=== PATIENT | female | born 1990 | race Caucasian/White ===

== ENCOUNTER 2022-03-21 11:54 | Day surgery (SDC) | payer BC ==
[2022-03-21] MEDS ORDERED: IMMUNE GLOBULIN IVPB SCH (13:00)
[2022-03-21] MEDS ORDERED: ADMIXTURE FEE IVPB SCH (13:00)
[2022-03-21 13:44] VITALS: TEMP 98
[2022-03-21 15:21] VITALS: BP 101/60
== END 2022-03-21 15:41 | disposition home or self-care (01) ==
LOC: ONC/OP 11:54
PROVIDERS: ATTEND Psychiatry & Neurology Neurology
DX: G65.1 Sequelae of other inflammatory polyneuropathy (principal); G61.81 Chronic inflammatory demyelinating polyneuritis; Z79.52 Long term (current) use of systemic steroids
CPT/HCPCS: 96365; 96366; J1568

== ENCOUNTER 2022-04-12 08:48 | Day surgery (SDC) | payer BC ==
[2022-04-12 09:27] VITALS: BP 103/62; TEMP 98.1
[2022-04-12] MEDS ORDERED: IMMUNE GLOBULIN IVPB SCH (09:30)
[2022-04-12] MEDS ORDERED: ADMIXTURE FEE IVPB SCH (09:30)
== END 2022-04-12 13:15 | disposition home or self-care (01) ==
LOC: ONC/OP 08:48
PROVIDERS: ATTEND Psychiatry & Neurology Neurology
DX: G61.81 Chronic inflammatory demyelinating polyneuritis (principal)
CPT/HCPCS: 96365; 96366; J1568

== ENCOUNTER 2024-10-25 09:39 | Inpatient (IN) | payer BC ==
[2024-10-25] MEDS ORDERED: Acetaminophen 500 MG TAB ONE (12:56)
[2024-10-25] MEDS ORDERED: diphenhydrAMINE 25 MG CAP ONE (12:56)
[2024-10-25] MEDS ORDERED: Ondansetron ODT 4 MG TAB PO PRN (12:57)
[2024-10-25] MEDS ORDERED: Acetaminophen 650 MG Suppository PR PRN (12:57)
[2024-10-25] MEDS ORDERED: Senokot S 8.6-50 MG TAB PO PRN (12:57)
[2024-10-25 22:08] VITALS: BMI 41.2
[2024-10-25] MEDS ORDERED: Lorazepam 2 MG/ML VIAL SLOW IVP PRN (22:35)
[2024-10-26 05:10] LABS: #Basophils 0.04 10x3/uL (0.0-0.2); %Basophils 0.6 % (0.0-1.0); %Eosinophils 2.1 % (0.0-10.0); %Monocytes 6.4 % (0.0-10.0); %Neutrophils 64.1 % (42.0-75.0); Hematocrit 40.4 % (36.0-47.0); Hemoglobin 13.6 g/dL (12.0-16.0); Mean Corpuscular HGB CONC 33.7 g/dL (32.0-36.0); Mean Corpuscular Volume 95.1 fL (78.0-98.0); Mean Platelet Volume 9.1 fL (7.4-10.4); Platelet Count 229 10x3/uL (130-400); RBC Distribution Width 12.9 % (11.5-14.5); Red Blood Cell (RBC) Count 4.25 mill/uL (4.20-5.40)
[2024-10-26 05:26] LABS: Anion Gap 12 mmol/L (10-20); BUN (Urea Nitrogen) 14 mg/dL (7.0-18.7); Calc. Creatinine Clearance 179 mL/min (70-130); Calcium 8.5 mg/dL (7.8-10.44); Carbon Dioxide 22 mmol/L (22-29); Chloride 107 mmol/L (98-107); Estimated GFR 104; Glucose 90 mg/dL (70-105); Potassium 3.7 mmol/L (3.5-5.1); Sodium 137 mmol/L (136-145)
[2024-10-26] MEDS ORDERED: OCTAGAM 10% (10 GM/100 ML VIAL) IVPB SCH (09:00)
[2024-10-26] MEDS: Lorazepam 2 MG/ML VIAL SLOW IVP SCH (12:34)
[2024-10-26] MEDS: Acetaminophen 500 MG TAB PO SCH (15:21)
[2024-10-26] MEDS: diphenhydrAMINE 50 MG CAP PO SCH (15:21)
[2024-10-26] MEDS: Privigen 10 GM, Privigen 20 GM in Admixture Fee 1 EACH IVPB SCH (15:40)
[2024-10-27] MEDS: Fioricet 325/50/40 mg Tablet PO PRN (01:24)
[2024-10-27] MEDS: Fioricet 325/50/40 mg Tablet PO SCH (04:14)
[2024-10-27 04:19] LABS: #Basophils 0.03 10x3/uL (0.0-0.2); %Basophils 0.5 % (0.0-1.0); %Eosinophils 1.4 % (0.0-10.0); %Lymphocytes 28.4 % (21.0-51.0); %Monocytes 6.8 % (0.0-10.0); %Neutrophils 62.6 % (42.0-75.0); Mean Corpuscular HGB CONC 34.2 g/dL (32.0-36.0); Mean Corpuscular Hemoglobin 32.2 pg (27.0-31.0); Mean Corpuscular Volume 94.1 fL (78.0-98.0); Mean Platelet Volume 9.2 fL (7.4-10.4); Platelet Count 223 10x3/uL (130-400); RBC Distribution Width 12.9 % (11.5-14.5); Red Blood Cell (RBC) Count 4.04 mill/uL (4.20-5.40)
[2024-10-27 04:54] LABS: ALT (SGPT) 13 U/L (8-55); AST (SGOT) 15 U/L (5-34); Alkaline Phosphatase 60 U/L (40-110); Anion Gap 12 mmol/L (10-20); BUN (Urea Nitrogen) 10 mg/dL (7.0-18.7); Bilirubin, Total 0.7 mg/dL (0.2-1.2); CK (CPK) 49 U/L (29-168); Calc. Creatinine Clearance 192 mL/min (70-130); Calcium 8.7 mg/dL (7.8-10.44); Carbon Dioxide 19 mmol/L (22-29); Chloride 110 mmol/L (98-107); Estimated GFR 115; Globulin 4.2 g/dL (2.4-3.5); Glucose 93 mg/dL (70-105); Magnesium 1.8 mg/dL (1.6-2.6); Potassium 3.6 mmol/L (3.5-5.1); Protein, Total 7.2 g/dL (6.0-8.3); Sodium 137 mmol/L (136-145)
[2024-10-27] MEDS: Ketorolac Tromethamine 30 MG (1 mL) VIAL IVP SCH ×3 (07:24→20:15)
[2024-10-27] MEDS: Acetaminophen 325 MG TAB PO PRN (09:35)
[2024-10-27] MEDS: Acetaminophen 500 MG TAB PO SCH (14:44)
[2024-10-27] MEDS: diphenhydrAMINE 50 MG CAP PO SCH (14:45)
[2024-10-28] MEDS: Ketorolac Tromethamine 10 MG TAB PO SCH (00:40)
[2024-10-28 12:51] VITALS: BP 113/74; TEMP 98.2
== END 2024-10-28 13:49 | disposition home or self-care (01) | DRG 74 ==
LOC: ERS 09:39 → ERHOLD 12:21 → 2SE 10-26 04:20
PROVIDERS: ADMIT Family Medicine; ATTEND Internal Medicine
DX: G61.81 Chronic inflammatory demyelinating polyneuritis (principal); G61.0 Guillain-Barre syndrome
CPT/HCPCS: 36415; 70553; 72158; 76376; 80048; 80053; 82550; 83735; 84439; 84443; 84703; 85025; 87040; J1459; J1885; J2060